=== PATIENT | male | born 1980 | race Caucasian/White ===

== ENCOUNTER → 2020-02-24 | Outpatient (CLI) | payer OTHER ==
--- NOTE | 2020-02-29 06:58 | ECHO ---
DATE OF PROCEDURE: 02/24/2020 Age: 39 Gender: Male Height: 175 cm. Weight: 82 kg. REFERRING PHYSICIAN: Dr. Sidney Mueller INDICATION: Heart murmur. MEASUREMENTS: Aorta 3.3 LA 3.1 IVS 1.0 LV 4.3 LVPW 1.0 IVC 1.2 Mitral E wave velocity 58, A wave 77 E prime septal 6.3 E prime lateral 10.2 FINDINGS: The study is of good technical quality. The patient is in sinus rhythm. Left ventricle is normal size and systolic function with estimated left ventricular ejection fraction (LVEF) 60 to 65%. No segmental wall motion abnormalities are appreciated. Right ventricle is also normal size and systolic function. Both atria appear normal. All four cardiac valves were reasonably well seen and appear normal. No pericardial effusion is visualized. Inferior vena cava is normal size and appropriately collapses with inspiration indicative of normal central venous pressure. Aortic root and aortic arch appear normal. Abdominal aorta was not well seen. Doppler interrogation of aortic valve reveals no stenosis or insufficiency. There is trace mitral and trace tricuspid insufficiency. Calculated pulmonary artery pressure is in the low 20s corresponding to normal limits. Mild pulmonic insufficiency is seen. Mitral inflow pattern and tissue Doppler imaging of mitral annulus revealed grade 1 diastolic dysfunction. CONCLUSIONS: 1. Study is of good technical quality, the patient is in sinus rhythm. 2. Normal LV size and systolic function. Grade 1 diastolic dysfunction. 3. No hemodynamically significant valvular disease. 4. Normal central venous pressure and normal pulmonary artery pressure. COMMENTS: No significant valvular disease but grade 1 diastolic dysfunction with relatively low tissue Doppler velocities of mitral annulars are unusual for the patient's age. [id number]
== END ==
LOC: M CARPUL 10:01
PROVIDERS: ATTEND Internal Medicine
DX: Z00.00 Encounter for general adult medical examination without abnormal findings (principal); R01.1 Cardiac murmur, unspecified